=== PATIENT | female | born 1995 | race Caucasian/White ===

== ENCOUNTER 2023-07-31 21:00 | Emergency (ER) | payer OTHER, SELFPAY ==
[2023-07-31 21:09] VITALS: BP 102/72; PULSE 112; RESP 18; TEMP 37; O2SAT 98; BMI 22.6
--- NOTE | 2023-07-31 21:27 | CT_ITS ---
PROCEDURE INFORMATION: Exam: CT Abdomen And Pelvis Without Contrast Exam date and time: 07/31/2023 9:48 PM Age: 27 years old Clinical indication: Other: Left flank pain; Additional info: Concern for L stone TECHNIQUE: Imaging protocol: Computed tomography of the abdomen and pelvis without contrast. Total images: 532 Radiation optimization: All CT scans at this facility use at least one of these dose optimization techniques: automated exposure control; mA and/or kV adjustment per patient size (includes targeted exams where dose is matched to clinical indication); or iterative reconstruction. COMPARISON: No relevant prior studies available. FINDINGS: Lungs: 2 mm probable granuloma left lung base requiring no strict follow-up. Heart: Normal heart size. Liver: Normal. No mass. Gallbladder and bile ducts: Normal. No calcified stones. No ductal dilation. Pancreas: Normal. No ductal dilation. Spleen: Normal. No splenomegaly. Adrenal glands: Normal. No mass. Kidneys and ureters: There are few fine/punctate bilateral nonobstructing intrarenal calculi. No hydronephrosis or perinephric fluid. No discrete renal mass. No discrete ureteral stones. Stomach and bowel: Unremarkable stomach and duodenum. No ileus or bowel obstruction. Small bowel appears within normal limits. Moderate colonic stool burden. Unremarkable rectum. Appendix: Normal appendix. Intraperitoneal space: No ascites. No free air. Vasculature: Numerous pelvic phleboliths. Aorta is normal in caliber. Lymph nodes: Unremarkable. No enlarged lymph nodes. Urinary bladder: Collapsed bladder. Reproductive: Uterus and ovaries are physiologic. Trace free pelvic fluid is considered physiologic. Bones/joints: Unremarkable. No acute fracture. Soft tissues: Unremarkable. IMPRESSION: 1. Fine/punctate bilateral intrarenal calculi. No hydronephrosis/obstructive uropathy. 2. Trace free pelvic fluid, considered physiologic. 3. Moderate colonic stool burden.
--- NOTE | 2023-07-31 21:28 | [facility].EDGENADL ---
Discharge Plan Disposition Patient Disposition: Home, Self-Care Prescriptions Prescriptions: New cefdinir 300 mg capsule 300 mg PO BID 7 Days Qty: 14 0RF ondansetron 4 mg tablet,disintegrating 4 mg PO Q6H PRN (Reason: nausea and vomiting) Qty: 10 0RF Referrals Follow up/Referrals: Provider,Referral, [Primary Care Provider] - See instructions Clinical Impressions Clinical Impression: UTI (urinary tract infection) Instructions Patient Instructions: DI for Acute Abdominal Pain Discharge ED Provider: Hebert Tolentino General Adult HPI General Chief complaint: Abdominal Pain Stated complaint: burning w/urination right side back pain n/v fever Time Seen by Provider: 07/31/23 21:06 Mode of Arrival: Ambulatory Source of Information: Patient Limitations: No Limitations Description of Symptoms (Recalled from ER Triage Doc. by RN): 27 y/o female presents to ED for L flank pain that started 2 days ago. Seemed to get more intense tonight. Pt had a lithotripsy a few years ago for kidney stones. History of Present Illness HPI narrative: 27-year-old female history of kidney stones presenting with left flank pain. Started couple days prior to this visit. Initially went away but came back and was associated with nausea and vomiting. Easily, needed lithotripsy and stenting for kidney stones. No fevers or chills, abdominal pain, dysuria or hematuria. 1 episode of nonbloody, nonbilious vomiting associated with pain. Currently 6 out of 10, does not radiate and is located left flank. Related Data Previous Rx's Medication Instructions Recorded cefdinir 300 mg capsule 300 mg PO BID 7 days #14 caps 07/31/23 ondansetron 4 mg disintegrating 4 mg PO Q6H PRN nausea and 07/31/23 tablet vomiting #10 tabs Allergies Allergy/AdvReac Type Severity Reaction Status Date / Time Sulfa (Sulfonamide Allergy Severe Anaphylaxis Verified 07/31/23 21:47 Antibiotics) [facility] Disclaimer: The information contained in this section may have been updated after the patient was seen, as this information can be updated by other users. Social History Smoking Status: Never smoker alcohol intake: never current occupational status: employed Travel in the last 8 weeks: None ROS Obtained: Yes All systems reviewed & no additional complaints except as documented Physical Exam General General appearance: alert and in no apparent distress Head Head exam: atraumatic and normocephalic Eye Eye exam: Present normal appearance, PERRL and EOMI ENT ENT exam: Present mucous membranes moist Neck Neck exam: Present normal inspection, full ROM and trachea midline Respiratory Respiratory exam: Absent respiratory distress, wheezes, stridor, accessory muscle use or prolonged expiratory phase Cardiovascular Cardiovascular exam: Present normal rhythm Abdominal Exam Abdominal exam: Present soft; Absent distention, tenderness, guarding, rebound or rigidity Extremities Exam Extremities exam: Absent edema Neurological Exam Neurological exam: Present alert, oriented X3, CN II-XII intact and normal gait; Absent motor sensory deficit Skin Skin exam: Present warm and dry; Absent diaphoresis or erythema Medical Decision Making Medical Records Medical records reviewed: Yes I reviewed the patient's medical records. Lalo Inquiry Pt receiving controlled substance: No Lalo was queried for this patient: No Vital Signs: 07/31/23 21:09 Temperature 98.6 F Temperature Source Oral Pulse Rate [Left] 112 H Respiratory Rate 18 Blood Pressure [Right Arm] 102/72 L Blood Pressure Mean [Right Arm] 82 Blood Pressure Source [Right Arm] Automatic Cuff Blood Pressure Position [Right Arm] Sitting 02 Sat by Pulse Oximetry 98 Oxygen Delivery Method Room Air Lab Data Lab Results 07/31/23 21:25: Urine Color Yellow, Urine Appearance Clear, Urine pH 6.0, Ur Specific [place] 1.025, Urine Protein Negative, Urine Glucose (UA) Negative, Urine Ketones Trace, Urine Blood 2+, Urine Nitrate Negative, Urine Bilirubin Negative, Urine Urobilinogen 0.2, Ur Leukocyte Esterase 1+ A, Urine RBC 10-20, Urine WBC 5-10, Ur Squamous Epith Cells 3-5, Urine Bacteria 2+, Hyaline Casts Occasional, Urine HCG, Qual Negative Orders (Tests/Meds): ED MEDICATIONS Discontinued Medications Generic Name Dose Route Start Last Admin Trade Name Freq PRN Reason Stop Dose Admin Cefdinir 300 mg 07/31/23 22:38 07/31/23 22:41 Cefdinir 300mg Capsule PO 07/31/23 22:39 300 mg ONCE ONE Administration Ketorolac Tromethamine 30 mg 07/31/23 21:27 07/31/23 21:39 Ketorolac 30mg/Ml Vial IM 07/31/23 21:28 30 mg ONCE ONE Administration ORDERS Category Date Time Status CT abdomen pelvis wo con Stat Cat Scan 07/31/23 21:27 Completed UA [Urinalysis and Microscopic] Stat Lab 07/31/23 21:25 Completed Urine , HCG Qual. Stat Lab 07/31/23 21:25 Completed Urine Culture Stat Micro 07/31/23 21:25 Received Medical Decision Narrative: 27-year-old female history of kidney stones presenting with left flank pain. Started couple days prior to this visit. Initially went away but came back and was associated with nausea and vomiting. Easily, needed lithotripsy and stenting for kidney stones. No fevers or chills, abdominal pain, dysuria or hematuria. 1 episode of nonbloody, nonbilious vomiting associated with pain. Currently 6 out of 10, does not radiate and is located left flank. History was obtained via conversation with patient. On arrival, patient hemodynamically stable, alert, oriented x4, appropriate, GCS 15, moving all extremities spontaneously, pupils equal and reactive to light. Full physical exam performed and significant for well-appearing female no acute distress. No abdominal tenderness or flank tenderness. No overlying skin changes. Does not appear to be in significant pain, but has had stones in the past and saying this is about 6 out of 10.. Differential includes stone, ectopic , UTI, among others. Patient was given Toradol IM for symptomatic management and correction of underlying abnormalities. Workup independently interpreted and significant for UTI. No evidence of stone on CT. See radiology read for full review of final results. On reevaluation, patient given cefdinir. Because patient at baseline without signs or symptoms of clinical decompensation, deemed appropriate for discharge. Results were relayed to patient who voiced understanding and were agreeable to outpatient management and follow up. At the time of discharge the patient was hemodynamically stable, tolerating PO, and mobilizing appropriately. Critical Care Critical Care Time Critical Care Time: No
[2023-07-31 21:32] LABS: Microscopic, Urine URINE MICROSCOPIC (MICROSCOPIC)
[2023-07-31 21:35] LABS: Appearance,Urine CLEAR (Clear); Bilirubin,Urine Negative (Negative); Blood, Urine 2+ (Negative); Color,Urine YELLOW (Yellow); Glucose,Urine (UA) Negative (Negative); Ketones,Urine TRACE (Negative); Leukocyte Esterase,Urine 1+ (Negative); Nitrate,Urine Negative (Negative); Protein,Urine Negative (Negative); Specific Gravity, Urine 1.025 (1.005-1.030); Urobilinogen,Urine 0.2 EU/dl (0.2)
[2023-07-31 21:37] LABS: Urine Pregnancy, HCG Qual. Negative (Negative)
[2023-07-31] MEDS: KETOROLAC 30MG/ML VIAL 30 MG IM (21:39)
[2023-07-31 21:48] LABS: Bacteria,Urine 2+ /lpf; Hyaline Casts,Urine Occasional #/lpf (0)
[2023-07-31] MEDS: CEFDINIR 300MG CAPSULE 300 MG PO (22:41)
[2023-07-31 23:19] VITALS: BP 110/70; PULSE 98; RESP 18; TEMP 37; O2SAT 99
--- NOTE | 2023-08-04 14:50 | PC.NURSE ---
reviewed pt urine culture with Dr. Tolentino who stated it was contaminated specimen. no action needed at this time
== END 2023-07-31 23:26 | disposition home or self-care (01) ==
PROVIDERS: Emergency Provider Emergency Medicine
DX: N39.0 Urinary tract infection, site not specified (principal); R10.9 Unspecified abdominal pain; R11.2 Nausea with vomiting, unspecified
CPT/HCPCS: 74176; 81001; 81025; 87086; 96372; 99285